=== PATIENT | female | born 1960 ===

== ENCOUNTER 2024-01-25 15:32 | Emergency (ER) | payer OTHER, SELFPAY ==
[2024-01-25 15:39] VITALS: BP 163/104; PULSE 76; RESP 16; TEMP 36.6; O2SAT 97; BMI 30.1
--- NOTE | 2024-01-25 16:40 | ED_ITS ---
<Statement entered by Rubens Law, - 01/25/24 22:08> Dr. Law: I was immediately available in the department for consultation. Documentation has been reviewed. I agree with assessment and plan. HPI - Wound/Laceration General Chief Complaint: Wound/Laceration Stated Complaint: Zachery Gabriel Lac Time Seen by Provider: 01/25/24 16:40 History of Present Illness HPI narrative: Ms. Aparna Guzman is a pleasant 63-year-old female with a past medical history of hypertension who presents to the emergency department via EMS for a laceration to her left 5th digit that occurred just prior to arrival. Patient was at work, carrying a bottle of wine when she accidentally fell and broken glass from the wine bottle sliced her left 5th digit on the palmar crease. There was a significant amount of bleeding therefore EMS was called and brought the pt to the ED. Bleeding controlled with direct pressure btu resumes when pressure releases at this time. She denies any numbness or tingling of the distal aspect of the 5th finger. She does report difficulty with flexing the 5th finger. Denies any other injuries. She is not on any blood thinners. Pt reports Tetanus shot up-to-date within the last 5 years. Related Data Previous Rx's Medication Instructions Recorded cephalexin 500 mg capsule 500 mg PO TID 5 days #15 caps 01/25/24 Allergies Allergy/AdvReac Type Severity Reaction Status Date / Time No Known Drug Allergies Allergy Unknown Unverified 06/27/17 12:32 DUST Allergy Unknown Uncoded 06/27/17 12:32 Review of Systems Review of Systems ROS Unobtainable: All systems reviewed & are unremarkable except as noted in HPI and below Exam Narrative Exam Narrative: GENERAL: 63 year old patient appears stated age. Well-developed patient, in no acute distress. HEAD: Atraumatic. Normocephalic. EYES: Pupils equal round and reactive. Extraocular motions intact. No scleral icterus. No injection or drainage. ENT: Nose without bleeding, purulent drainage. Throat without erythema, tonsillar hypertrophy or exudate. Airway patent. NECK: Trachea midline. Non tender CARDIOVASCULAR: Regular rate. RESPIRATORY: Speaking in clear, full sentences. No respiratory distress. MUSK/SKIN: Approximately 4 cm, jagged, gaping laceration overlying the palmar crease of the left 5th finger (overlying the MCP joint). 1 cm triangular flap laceration just proximal to this on the palm. 0.5 cm linear laceration on the ulnar base of the adjacent ring finger. No pulsatile bleeding however there is steady oozing from the laceration that stopped with direct pressure and returns when pressure is released. Brisk cap refill on the distal tip of the finger. Full extension of finger, but limited active flexion of 5th digit at MCP/PIP/DIP. NEURO: AOx3. Sensation intact to light touch distal to the wound on the 5th left finger. Initial Vital Signs Initial Vital Signs: Vital Signs Temperature 97.8 F 01/25/24 15:39 Pulse Rate 76 01/25/24 15:39 Respiratory Rate 16 01/25/24 15:39 Blood Pressure 163/104 H 01/25/24 15:39 Pulse Oximetry 97 01/25/24 15:39 Oxygen Delivery Method Room Air 01/25/24 15:39 Procedures Laceration Repair Laceration 1: Time of procedure: 20:29 Site: hand Side (If applicable): left Size (cm): 4 Description: irregular Local Anesthetic: lidocaine 1% Amount of anesthesia used (mL): 7 Pre-repair: wound explored and irrigated extensively (Cleansed with diluted Betadine) Skin layer closed with: nylon Skin layer suture size: 5-0 Number of sutures: 12 Technique: simple, interrupted Subcutaneous layer closed with: other (fast absorbing gut - to tie off vessel) Subcutaneous layer suture size: 5-0 Number of sutures: 1 Technique: simple, interrupted Laceration 2: Time of procedure: 20:00 Site: hand Side (If applicable): left Size (cm): 1 Description: flap Local Anesthetic: lidocaine 1% Pre-repair: wound explored and irrigated extensively Skin layer closed with: nylon Skin layer suture size: 5-0 Technique: simple, interrupted Laceration 3: Time of procedure: 20:00 Site: hand (4th finger) Side (If applicable): left Size (cm): 0.5 Depth: simple, single layer Pre-repair: wound explored and irrigated extensively Skin layer closed with: dermabond Course Orders Ordered: ED Orders 01/25/24 17:47 XR hand LT min 3V Stat Discontinued Medications Bacitracin (Bacitracin Oint 0.9 Gm Pckt) 1 applic TOP NOW ONE Stop: 01/25/24 19:45 Last Admin: 01/25/24 19:47 Dose: 1 applic Documented By: CARLOS Cephalexin HCl (Cephalexin 250 Mg Capsule) 500 mg PO NOW ONE Stop: 01/25/24 19:32 Last Admin: 01/25/24 19:35 Dose: 500 mg Documented By: CARLOS Lidocaine HCl (Lidocaine 1% (Pf) 5 Ml) 5 ml INJ NOW ONE Stop: 01/25/24 16:51 Last Admin: 01/25/24 17:02 Dose: 5 ml Documented By: SPF Vital Signs Vital signs: Vital Signs - 8 hr 01/25/24 15:39 01/25/24 20:19 Temperature 97.8 F Pulse Rate 76 65 Respiratory Rate 16 18 Blood Pressure 163/104 H 181/98 H Pulse Oximetry 97 96 Oxygen Delivery Method Room Air MDM - Wound/Laceration Imaging Data Left hand X-Ray: My Impression: On my independent interpretation of left hand x-ray, there is no radiopaque foreign body. Radiologist's Impression: FINDINGS: Bones: No fractures or dislocations. Carpal bones are normally aligned. No suspicious bony lesions. 1st CMC joint space narrowing with associated osteophytosis and sclerosis. Soft tissues: No suspicious soft tissue calcifications. IMPRESSION: No acute bony abnormality. MDM Narrative Medical decision making narrative: 63-year-old female presents to the emergency department for a laceration of the base of her left 5th digit that occurred prior to arrival. Differential diagnosis includes but is not limited to laceration, foreign body, fracture, open fracture, flexor tendon laceration, infection, etc. on exam patient is in no acute distress, nontoxic appearing, mildly hypertensive. She has a laceration on palmar crease of her left 5th digit that is extremely irregular/jagged, gaping, bleeding. Two adjacent small lacerations. Patient does have limited active flexion of the finger concerning for possible flexor tendon injury however no obvious tendon injury visualized within the wound. After shared decision-making with the patient, the wound was anesthetized. Bleeding vessel was repaired using a fast-absorbing gut suture to allow visualization of the remaining wound. Primary laceration was then closed using 12 sutures. Adjacent flap laceration closed using 2 sutures. Linear laceration on 4th digit closed with Dermabond. An x-ray was obtained which does not reveal any fracture, radiopaque foreign body or other abnormality. The patient was given a dose of Keflex in the emergency department. The wound was covered with bacitracin, sterile nonadherent dressing, and the 5th and 4th digits were wrapped together to allow support. Patient was provided with orthopedic surgery follow up as I would like her to see a hand surgeon for further evaluation of potential tendon involvement. We extensively discussed proper wound care. She was prescribed a course of Keflex. Discussed signs and symptoms of infection to return to the ER for. I advised the patient to have the sutures removed in 10-14 days however I would like her to be evaluated by hand surgeon prior to that. Patient aware of her elevated blood pressure and will follow up with her PCP. All questions answered. Patient is stable for discharge at this time. Discharge Plan Departure Patient Disposition: Home Clinical Impression: Finger laceration Qualifiers: Encounter type: initial encounter Finger: little finger Damage to nail status: without damage Foreign body presence: without foreign body Laterality: left Q ualified Code(s): S61.217A - Laceration without foreign body of left little finger without damage to nail, initial encounter Instructions: DI for Laceration Repair Activity Restrictions/Additional Instructions: Please call [facility] at to schedule an appointment with Dr. Merline Simons for further management of your hand laceration. Please keep the wound dressing in place and dry for the next 12-24 hours. After this you may remove the dressing, clean the wound with soap and water, pat dry, and cover the stitches with an antibiotic ointment then Re-cover the wound with gauze. Please keep the pinky and ring finger wrapped together for support. Complete the full course of antibiotics. You had 14 stitches placed today. Stitches need to be removed in 10-14 days -you may do this with your primary care doctor, at the walk-in clinic, or here in the emergency room however the orthopedic doctor will decide on further management of the wound. If you develop drainage from the wound, increased redness, streaking redness, fever/chills, or any other symptoms concerning for infection please return to the emergency room. Take 1000 mg of Tylenol and/or 600 mg of ibuprofen every 6 hours help with pain. Prescriptions: New cephalexin 500 mg capsule 500 mg PO TID 5 Days Qty: 15 0RF Referrals: Roverto Simons MD [Physician] - (left fifth digit/hand laceration) Sean Bradshaw ARNP [Primary Care Provider] - Stand Alone Forms: Patient Portal/API/Survey, Work Release Note
[2024-01-25] MEDS: LIDOCAINE 1% (PF) 5 ML INJ (17:02)
--- NOTE | 2024-01-25 17:47 | DI.RAD.S_ITS ---
PROCEDURE: XR HAND LT MIN 3V INDICATIONS: hand injury/laceration TECHNIQUE: 3 views of the hand(s) acquired. COMPARISON: None. FINDINGS: Bones: No fractures or dislocations. Carpal bones are normally aligned. No suspicious bony lesions. 1st CMC joint space narrowing with associated osteophytosis and sclerosis. Soft tissues: No suspicious soft tissue calcifications. IMPRESSION: No acute bony abnormality. Dictated by: Fahad Andrews M.D. on 01/25/2024 at 18:14 Approved by: Fahad Andrews M.D. on 01/25/2024 at 18:14
--- NOTE | 2024-01-25 18:20 | PC.NURSE ---
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 Bleeding controlled with gauz and coban.
[2024-01-25] MEDS: cephALEXin 250 MG CAPSULE 500 MG PO (19:35)
[2024-01-25] MEDS: BACITRACIN OINT 0.9 GM PCKT 1 APPLIC TOP (19:47)
--- NOTE | 2024-01-25 20:14 | PC.NURSE ---
hand dressed with bacitracin, telfa placed between the fingers the 3rd and 4th digits were france taped and then the hand was wrapped with jeannie
[2024-01-25 20:19] VITALS: BP 181/98; PULSE 65; RESP 18; O2SAT 96
== END 2024-01-25 20:30 | disposition home or self-care (01) ==
PROVIDERS: Emergency Provider Physician Assistant; Family Provider Nurse Practitioner; PCP Nurse Practitioner
DX: S61.217A Laceration without foreign body of left little finger without damage to nail, initial encounter (principal); W25.XXXA Contact with sharp glass, initial encounter
CPT/HCPCS: 12002; 73130; 99283; 99284